=== PATIENT | male | born 1995 | race Caucasian/White ===

== ENCOUNTER 2017-05-24 09:14 | Emergency (ER) | payer SELFPAY | END 2017-05-24 10:40 | disposition home or self-care (01) | LOC: FER 09:14 | DX: A08.4 Viral intestinal infection, unspecified (principal); R10.84 Generalized abdominal pain; F17.210 Nicotine dependence, cigarettes, uncomplicated | CPT/HCPCS: J2405 ==

== ENCOUNTER 2021-07-21 11:33 | Emergency (ER) | payer OTHER ==
[~2021-07-21 11:33] MED LIST: ATARAX25 MG PO; FLEXERIL10 MG PO; IBUPROFEN800 MG PO
[2021-07-21 15:27] LABS: BASOPHIL 0.5 % (0-2); EOSINOPHIL 1.2 % (0-5); HCT 48.4 % (42.0-52.0); HGB 16.3 g/dl (13.2-18.0); LYMPHOCYTE 24.5 % (15-48); MCH 31.2 pg (25.0-31.0); MCHC 33.7 g/dL (32.0-36.0); MCV 92.7 fL (78.0-100.0); MPV 10.2 fL (6.0-9.5); NEUTROPHIL 65.7 % (41-80); NRBC 0; PLT 178 K/uL (150-400); RBC 5.22 M/uL (4.70-6.00); RDW 12.7 % (11.5-14.0); WBC 7.6 K/uL (4.0-10.5)
[2021-07-21 15:44] LABS: INR 1.01 (0.9-1.2); PROTHROMBIN TIME 12.7 SECONDS (11.8-13.4); PTT 25.3 SECONDS (24.4-34.7)
[2021-07-21 15:55] LABS: BUN/CREAT RATIO (CALC) 11.3 RATIO; CREATININE 0.97 mg/dL (0.67-1.17); POTASSIUM 4.7 mmol/L (3.5-5.1)
== END 2021-07-21 17:11 | disposition home or self-care (01) ==
LOC: FER 11:33
PROVIDERS: Nurse Practitioner Family
DX: S80.01XA Contusion of right knee, initial encounter (principal); F17.210 Nicotine dependence, cigarettes, uncomplicated; X58.XXXA Exposure to other specified factors, initial encounter
CPT/HCPCS: 36415; 80048; 85025; 85610; 85730; 93971